=== PATIENT | female | born 1950 | race Caucasian/White ===

== ENCOUNTER 2021-08-29 12:33 | Emergency (ER) | payer MEDICARE ==
[~2021-08-29] VITALS: Ht 162.6 cm; Wt 77.3 kg
[2021-08-29 12:51] VITALS: TEMP 98
[2021-08-29 14:00] VITALS: BP 137/86; PULSE 86
== END 2021-08-29 14:01 | disposition home or self-care (01) ==
LOC: COL.ER 12:33
DX: U07.1 COVID-19 (principal)